=== PATIENT | female | born 1990 | race Caucasian/White ===

== ENCOUNTER 2021-03-17 17:10 | Inpatient (IN) | payer OTHER ==
[~2021-03-17] VITALS: Ht 162.6 cm; Wt 72.1 kg
[2021-03-17] MEDS ORDERED: IV NS 0.9% 1,000 ML BAG IV ONE (18:00)
[2021-03-17] MEDS ORDERED: KETOROLAC TROMETHAMINE INJ 30 MG/ML VIAL IV ONE (18:00)
[2021-03-17 18:12] LABS: BASOPHILS # (AUTO) 0.1 K/uL (0.0-0.2); BASOPHILS % (AUTO) 0.3 % (0.0-2.0); EOSINOPHILS % (AUTO) 0.1 % (0.0-6.0); HEMATOCRIT 40 % (33-45); HEMOGLOBIN 13.5 g/dL (11.5-14.8); LYMPHOCYTES # (AUTO) 1.3 K/uL (0.8-4.8); MEAN CORPUSCULAR HGB CONC 34 g/dl (31.0-36.0); MEAN CORPUSCULAR VOLUME 105 fL (82-100); MONOCYTES # (AUTO) 1.4 K/uL (0.1-1.30); MONOCYTES % (AUTO) 6.3 % (2.0-12.0); NEUTROPHILS # (AUTO) 19.4 K/uL (1.8-8.9); NEUTROPHILS % (AUTO) 87.3 % (43.0-81.0); PLATELET COUNT (AUTO) 264 K/uL (150-450); RED BLOOD CELL COUNT(AUTO) 3.79 MIL/uL (4.0-5.2); WHITE BLOOD COUNT (AUTO) 22.2 K/uL (4.3-11.0)
[2021-03-17 18:18] LABS: BILIRUBIN,URINE NEGATIVE (NEGATIVE); COLOR,URINE DARK YELLOW (YELLOW); LEUKOCYTE ESTERASE ,URINE TRACE (NEGATIVE); NITRITE, URINE NEGATIVE (NEGATIVE); PH,URINE 5.5 (5.0-8.0); PROTEIN,URINE TRACE mg/dl (NEGATIVE); UGLUCOSE NEGATIVE (NEGATIVE); UROBILINOGEN,URINE 0.2 EU/dL (0.2)
[2021-03-17 18:32] LABS: RBC,URINE 0-2 /HPF (0-2)
[2021-03-17 18:33] LABS: BACTERIA,URINE None seen /HPF (None Seen); CALCIUM OXALATE CRYSTALS,UR Few /HPF (None Seen); SQUAMOUS EPITHELIAL CELL,UR Few /HPF (None Seen)
[2021-03-17] MEDS ORDERED: KETOROLAC TROMETHAMINE 15 MG/ML VIAL ONE (18:36)
[2021-03-17 18:43] LABS: CALCIUM, SERUM 9.2 mg/dL (8.5-10.1); CREATININE 0.8 mg/dL (0.6-1.3); POTASSIUM 4.3 mmol/L (3.5-5.1)
--- NOTE | 2021-03-17 18:53 | NUR ---
Patient came in to the er c/o abd pain. On room air, connected to the monitor and pulse ox. kept comfortable, will continue to monitor accordingly.
[2021-03-17] MEDS ORDERED: MORPHINE SULFATE INJ 2 MG/ML DISP.SYRIN IV ONE (19:00)
[2021-03-17] MEDS ORDERED: ONDANSETRON HCL/PF - ER 4 MG/2 ML VIAL IV ONE (19:00)
[2021-03-17] MEDS ORDERED: MORPHINE SULFATE INJ 4 MG/ML DISP.SYRIN ONE (19:11)
[2021-03-17] MEDS ORDERED: ONDANSETRON HCL/PF 4 MG/2 ML VIAL ONE (19:11)
[2021-03-17] MEDS ORDERED: CT SWABBABLE VALVE TRANS SET 1 EA INFUS.SET MC ONE (19:14)
[2021-03-17] MEDS ORDERED: IV NS 0.9% 250 ML IV ONE (19:14)
[2021-03-17] MEDS ORDERED: IOHEXOL-300 100 ML VIAL IV ONE (19:14)
--- NOTE | 2021-03-17 19:36 | NUR ---
LEONELID SWABBED, SENT TO LAB.
[2021-03-17] MEDS ORDERED: DIAZEPAM 5 MG/ML 2 ML DISP.SYRIN ONE (19:37)
[2021-03-17] MEDS ORDERED: DIAZEPAM 5 MG/ML 2 ML DISP.SYRIN IV ONE (20:00)
[2021-03-17] MEDS ORDERED: HYDROMORPHONE 1 MG/1 ML DISP.SYRIN ONE ×2 (20:14→21:58)
[2021-03-17] MEDS ORDERED: HYDROMORPHONE 1 MG/1 ML DISP.SYRIN IV ONE (20:30)
--- NOTE | 2021-03-17 21:30 | NUR ---
PT RESTING COMFORTABLY. AWARE OF PLAN OF CARE. DENIES PAIN, VSS.
--- NOTE | 2021-03-17 21:44 | NUR ---
REPORT GIVEN TO NASIR NAILS FOR NAHUN
[2021-03-17] MEDS ORDERED: NITROFURANTOIN/NITROFURAN MONOHYDRATE 100 MG CAPSULE ONE (21:58)
[2021-03-17] MEDS ORDERED: HYDROMORPHONE 1 MG/1 ML DISP.SYRIN IV PRN (22:00)
--- NOTE | 2021-03-17 22:23 | NUR ---
PT TRANSFERED PER ACLS PROTOCOL.
--- NOTE | 2021-03-17 22:30 | NUR ---
RECEIVED PT FROM E.R. VIA ExterityEDMUNDO TO RM.320-2, ACCOMPANIED BY NURSE PRACTICAL. PT ADMITTED FOR CL CYST RUPTURE HEMOPERITONEUM. PT A/OX4, ABLE TO VERBALIZE NEEDS. STATES PAIN IS TOLERABLE AT THIS TIME. RESPIRATIONS EVEN AND UNLABORED. ON ROOM AIR AND HUANG WELL. IV SITE: L-AC #18G INTACT/PATENT/FLUSHES WELL. SKIN ASSESSMENT DONE/SKIN INTACT. ORIENTED TO ROOM AND STAFF, REINFORCED SAFETY TEACHINGS AND TO USE CALL LIGHT FOR ANY ASSISTANCE. PT VERBALIZED UNDERSTANDING. SAFETY MEASURES IN PLACE, BED IN LOWEST LOCKED POSITION, S/R UPX2, CALL LIGHT WITHIN REACH. WILL CONT TO MONITOR.
[2021-03-17 23:00] VITALS: BP 128/81
[2021-03-17 23:09] VITALS: BP 128/81
[2021-03-17] MEDS ORDERED: Z GUARD REMEDY 2 OZ OINT TP PRN (23:30)
[2021-03-17] MEDS ORDERED: ACETAMINOPHEN 325 MG TABLET PO PRN (23:30)
[2021-03-17] MEDS ORDERED: ONDANSETRON HCL/PF 4 MG/2 ML VIAL IVP PRN (23:30)
[2021-03-17] MEDS ORDERED: LORAZEPAM INJ 2 MG/ML VIAL IV PRN (23:30)
[2021-03-18] LABS: HEMATOCRIT 35 % (33-45); HEMOGLOBIN 11.9 g/dL (11.5-14.8); MEAN CORPUSCULAR HGB CONC 34 g/dl (31.0-36.0); MEAN CORPUSCULAR VOLUME 105 fL (82-100); PLATELET COUNT (AUTO) 202 K/uL (150-450); RED BLOOD CELL COUNT(AUTO) 3.35 MIL/uL (4.0-5.2); WHITE BLOOD COUNT (AUTO) 19.9 K/uL (4.3-11.0)
[2021-03-18] MEDS: IV NS 0.9% 1,000 ML IV PRN ×2 (01:05→15:10)
[2021-03-18] MEDS: HYDROMORPHONE INJ 2 MG/ML DISP.SYRIN IV PRN ×5 (01:07→20:14)
--- NOTE | 2021-03-18 01:07 | NUR ---
RN NOTE PT C/O PAIN TO LOWER ABD AREA 8/10 EXACERBATED BY MOVEMENT. GIVEN DILAUDID 1MG ORDERED. WILL CONT TO MONITOR.
--- NOTE | 2021-03-18 07:10 | NUR ---
RN CLOSING NOTE PT RESTING IN BED, DENIES PAIN AT THIS TIME. NO SOB. ON ROOM AIR AND HUANG WELL. IV SITE: L-AC #18G INTACT/PATENT/FLUSHES WELL. PT SLEPT WELL DURING THE NIGHT. NO ACUTE DISTRESS NOTED. SAFETY MEASURES MAINTAINED. ENDORSED TO NEXT SHIFT NURSE.
--- NOTE | 2021-03-18 07:40 | NUR ---
RN OPENING NOTES Patient seen comfortably lying in bed, no SOB, no apparent distress noted, breathing even and unlabored, denies any pain or discomfort at this time. Call light left within reach, safety precautions in place, brakes locked, side rails up X 2, will monitor closely for any changes.
[2021-03-18 08:00] VITALS: BP 119/76
[2021-03-18 08:40] LABS: BASOPHILS # (AUTO) 0.1 K/uL (0.0-0.2); BASOPHILS % (AUTO) 0.4 % (0.0-2.0); EOSINOPHILS % (AUTO) 0.8 % (0.0-6.0); HEMATOCRIT 31 % (33-45); HEMOGLOBIN 10.7 g/dL (11.5-14.8); LYMPHOCYTES # (AUTO) 2.1 K/uL (0.8-4.8); LYMPHOCYTES % (AUTO) 16.6 % (20.0-44.0); MEAN CORPUSCULAR HGB CONC 34 g/dl (31.0-36.0); MEAN CORPUSCULAR VOLUME 107 fL (82-100); MONOCYTES % (AUTO) 7.7 % (2.0-12.0); NEUTROPHILS # (AUTO) 9.4 K/uL (1.8-8.9); NEUTROPHILS % (AUTO) 74.5 % (43.0-81.0); PLATELET COUNT (AUTO) 163 K/uL (150-450); RED BLOOD CELL COUNT(AUTO) 2.94 MIL/uL (4.0-5.2); WHITE BLOOD COUNT (AUTO) 12.6 K/uL (4.3-11.0)
[2021-03-18] MEDS ORDERED: NITROFURANTOIN/NITROFURAN MONOHYDRATE 100 MG CAPSULE PO SCH (09:00)
[2021-03-18] MEDS: NITROFURANTOIN/NITROFURAN MONOHYDRATE 100 MG CAPSULE PO SCH ×2 (09:06→20:13)
[2021-03-18 09:16] LABS: BILIRUBIN,TOTAL 0.5 mg/dL (0.2-1.0); CALCIUM, SERUM 7.6 mg/dL (8.5-10.1); CREATININE 0.8 mg/dL (0.6-1.3); MAGNESIUM 1.7 mg/dL (1.8-2.4); PHOSPHORUS 4.1 mg/dL (2.5-4.9); POTASSIUM 3.6 mmol/L (3.5-5.1); TOTAL PROTEIN, SERUM 5.5 g/dL (6.4-8.2)
--- NOTE | 2021-03-18 11:30 | NUR ---
Patient seen and examined by hospitalist, plan of care discussed with patient, patient requested to have her blood draw for today stopped, per patient she feels like she already have enough for the day and she feels uncomfortable giving more, per hospitalist, okay to cancel the remaining hemogram orders.
--- NOTE | 2021-03-18 15:11 | NUR ---
SS Consult: SS consult requested for substance abuse. Pt. is a 30-year-old woman who was admitted to [facility] for complaints of abdominal pain to her right shoulder. Per the EMR, pt. was describing the pain as a 10/10. Per the EMR, pt. has no recent trauma and normal menstrual cycles. Upon SS consult, the pt. is alert and oriented x4. Pt. presents with a depressed mood and flat affect. Pt. is guarded and provides appropriate eye contact & appears well-groomed. Pt.s mother, Tatyana Girard ([phone]) was bedside and pt. agreed to proceed with the interview. SW explored pt.s living situation. Pt. stated she lives at home [[address] [place] [address]; [phone]] with her ex-boyfriend but did not disclose his name. Pt. stated they are ambulatory. SW explored pt.s drug and alcohol abuse. Pt. denied drug and alcohol abuse. SW offered addiction resources as pt. disclosed to other medical staff that they do drugs. Pt. refused resources. SW explored pt.s mental health H. Pt. denies any mental illness. Pt. denied SI/HI and visual and auditory hallucinations. Upon discharge, pt. states they want to return to home [[address] [place] [id number]]. Resources offered include: ADDICTION RESOURCES For Drugs and Alcohol [facility] Substance Abuse Helpline([facility] Outpatient treatment, residential treatment, recovery support for youth and adults [facility] www.actionfamilycounseling.GigsJam [facility] Teen programs for drug/alcohol education and support [facility]. Program for adults, sliding scale provides support and education [facility] www.Harrow Sportsation.org [place]; Outpatient/residential treatment programs; transition to sober living [facility] www.cri-help.org [place]; Outpatient and residential treatment programs; transition to sober living [facility] [place]; Outpatient education and supportive programs for teens and adults [facility] www.oasiswomensrecovery.org [place]; Residential treatment and work program for females only [facility] www.phoMarket76[facility].org [place]: Outpatient/residential treatment program for teens and young adults [facility] www.[facility].org [place] Detox, inpatient, outpatient for adults and youth [facility], [facility]. [place]; Outpatient programs and referrals to community residential programs. Alcoholics Anonymous -SFV information and meeting and schedules www.aa-intergroup.org Jb-Spem-Fycbrrz https://al-anon.org/ [place] support groups for family of alcoholics. Marijuana Anonymous www.DuXplore.org -sfv listing of meetings Narcotics Anonymous www.na.org SOBER LIVING RESOURCES [facility] www.soberhousing.net A non-profit agency that provides resources to recovery and sober living homes throughout [place], [place], [facility] Sober Living Homes: A [facility], [facility] Womens Sober Living Homes: [facility] x [phone] [place], [place] [facility] Coed Sober Living Homes: [facility]--Outpatient [facility] [address] [place] [address] (Specializes in in-depth psychotherapy for emotional distress: anxiety, depression, interpersonal conflicts, life transitions, childhood abuse) [facility] [address] [place] [address] (Assist with solving problem marital difficulties, separation & divorce, aging parents, & grief, chronic & terminal illness) [facility] [address] [place] [address] (Deal with loss & grief, anxiety, marital difficulties) [facility]ental Health Services [address] [place], [place] [id number] (Provide in-home mental services to people who are incapable of leaving their homes) [facility]eds of the Elderly [facility] [address] [place] [address] [facility] [address] [place] [address] Mental Health Services [facility] [address] [place] [address] Services: Outpatient therapy for children, teens, young adults, adults, older adults, and families; Psychiatric services, medication support Psychiatric Outpatient Services [facility] Partial Hospitalization and Intensive Outpatient Program (Managed Care and [place] Only)[address] [facility] [phone] [facility] Partial Hospitalization and Outpatient [place] [place], [place] [phone] [facility] Partial Hospitalization and Outpatient [address] [place], [place] [phone] [facility] [id number] [facility]. [address] [place], [place] [phone] [facility] Partial Hospitalization and Outpatient Rfzfdps[address]69 Veda Gao [phone] Crisis and Hotline Telephone Numbers 24-Hour service unless stated [place] Crisis Hotlines: [place] Mental Health/Crisis Line........585.600.9826 Suicide Prevention Center (24 Hours).......683.427.3517 Suicide Prevention Crisis Center.......141.575.9085 (24 Hours) Assaults Against Women Hotline.........386.606.6004 (24 Hours -- [facility]) Women and Children Crisis Fdc...........684.136.2216 (24 Hours) Child Abuse Hotline............552.542.4788 [facility] (24 Hours)..........172.239.3928 Alcoholics Anonymous (24 Hours)..........788.818.2214 Cocaine Anonymous (24 Hours)............179.198.6562 Narcotics Anonymous (24 Hours)..........452.355.1544 [address] [facility] [address], [place] [address]
[2021-03-18 16:00] VITALS: BP 107/64
--- NOTE | 2021-03-18 19:00 | NUR ---
RN CLOSING NOTES Patient lying in bed, AO X 4, able to make needs known, can follow simple commands. No apparent distress noted, no dizziness, no palpitations, respirations even and unlabored, no SOB, remained afebrile. All due medications given per MD order, tolerating well. Pain medication given as needed per MD order when non pharmacological measures ineffective. Call light left within reach, all needs attended, kept clean and dry, safety precautions in place, brakes locked, side rails up X 2, will endorse to next shift for continuity of care.
--- NOTE | 2021-03-18 19:50 | NUR ---
Patient is A&Ox4. States that the pain to her abdomen is back. Patient educated that pain medicine will be administered when due for safety reasons. NS at 75cc/hr infusing to RAC #18G. LAC#18G flushed and patent as well. Safety measures in place. Will continue to monitor.
[2021-03-18 20:00] VITALS: BP 106/68
--- NOTE | 2021-03-18 20:15 | NUR ---
Patient medicated with PRN dilaudid for severe abdominal pain.
--- NOTE | 2021-03-18 21:25 | NUR ---
Change of care report given to JESU Rose.
[2021-03-19] MEDS: HYDROMORPHONE INJ 2 MG/ML DISP.SYRIN IV PRN ×3 (01:12→11:15)
--- NOTE | 2021-03-19 01:12 | NUR ---
RN NOTE PATIENT AWAKE, ALERT. PATIENT REQUESTING FOR PAIN MEDICATION. PATIENT STATES THE PAIN IS STEMMING FROM HER ABDOMEN AND IS SLIGHTLY RADIATING TO THE RIGHT ABDOMEN. RATES PAIN 1010. PATIENT DENIES CONSTIPATION AND STATES HER LAST BM WAS 03/17. ABDOMEN SOFT AND NON-TENDER. NO REDNESS NOTED. ASSISTED WITH TURNING AND REPOSITIONING WITH NO RELIEF. ADMINISTERED DILAUDID 1 MG VIA IV PUSH. WILL CONTINUE TO MONITOR. CALL LIGHT WITHIN REACH. Addendum: 03/19/21 at 0553 by CARMENCITA ELI RN PAIN RATE 03/01
[2021-03-19] MEDS: IV NS 0.9% 1,000 ML IV PRN (05:15)
--- NOTE | 2021-03-19 05:53 | NUR ---
RN NOTE PATIENT REQUESTING FOR PAIN MEDICATION. STATES HER PAIN IS ON HER LOWER ABDOMEN, RADIATING TO THE RIGHT LATERAL ABDOMEN. ABDOMEN IS WARM, SOFT, AND NON-TENDER. DENIES CONSTIPATION. NO REDNESS NOTED. STATES HER PAIN IS 10/10. NOTED WITH ABDOMINAL GUARDING AND MOANING. ASSISTED WITH REPOSITION WITH NO RELIEF. ADMINISTERED DILAUDID 1MG VIA IV PUSH. DENIES PAIN AT IV SITE. WILL CONTINUE TO MONITOR.
--- NOTE | 2021-03-19 07:30 | NUR ---
MS RN OPENING NOTES RECEIVED PATIENT ON BED, RESTING AND A/O X4. ON ROOM AIR TOLERATING WELL. NO SOB NOTED. NOT IN DISTRESS. WITH NO COMPLAINTS OF PAIN OR DISCOMFORT AT THIS TIME. WITH IV ACCESS AT RIGHT AC G18, AND LEFT AC G18 WITH NS AT 75ML/HR. BOTH IV LINES ARE PATENT AND INTACT. SAFETY MEASURES IN PLACE. CALL LIGHT WITHIN REACH. BED ON LOWEST AND LOCKED POSITION, SIDE RAILS UP X2. WILL CONTINUE TO MONITOR.
[2021-03-19 08:00] VITALS: BP 110/58
[2021-03-19] MEDS: NITROFURANTOIN/NITROFURAN MONOHYDRATE 100 MG CAPSULE PO SCH (08:39)
[2021-03-19] MEDS ORDERED: PSYLLIUM SEED 1 PKT PACKET PO ONE (10:00)
[2021-03-19] MEDS ORDERED: MAG HYDROX/AL HYDROX/SIMETH 30 ML UDC PO PRN (10:00)
[2021-03-19] MEDS ORDERED: DOCUSATE SODIUM 100 MG CAPSULE PO SCH (10:00)
[2021-03-19] MEDS ORDERED: PSYLLIUM SEED 1 PKT PACKET ONE (10:12)
[2021-03-19] MEDS ORDERED: DOCUSATE SODIUM 100 MG CAPSULE PO ONE (10:13)
[2021-03-19 16:00] VITALS: BP 115/72
[2021-03-19] MEDS ORDERED: MORPHINE SULFATE INJ 4 MG/ML DISP.SYRIN IV PRN (18:00)
[2021-03-19] MEDS ORDERED: LORAZEPAM 1 MG TABLET PO PRN (18:00)
[2021-03-19] MEDS ORDERED: HYDROCODONE/APAP 5/325MG TABLET PO PRN (18:00)
--- NOTE | 2021-03-19 18:30 | NUR ---
MS RN CLOSING NOTES PATIENT ON BED, RESTING AND A/O X4. ON ROOM AIR TOLERATING WELL. NO SOB NOTED. NOT IN DISTRESS. WITH COMPLAINTS OF PAIN AT 7/10. NORCO 5-325MG TABLET GIVEN PRN FOR PAIN. COMFORT MEASURES PROVIDED. WITH IV ACCESS AT RIGHT AC G18, AND LEFT AC G18 WITH NS AT 75ML/HR. BOTH IV LINES ARE PATENT AND INTACT. SAFETY MEASURES IN PLACE. CALL LIGHT WITHIN REACH. BED ON LOWEST AND LOCKED POSITION, SIDE RAILS UP X2. WILL ENDORSE TO NEXT SHIFT FOR NAHUN.
--- NOTE | 2021-03-19 19:00 | NUR ---
MS RN OPENING NOTE RECEIVED PT IN BED, RESTING. A/O X4. PT IS ON ROOM AIR, NO SOB OR RESPIRATORY DISTRESS NOTED, NO C/O PAIN. RESPIRATIONS EVEN AND UNLABORED, IV ACCESS NOTED IN LEFT AC G#18, RIGHT AC 18, INTACT, PATENT AND FLUSHING WELL. FALL AND SAFETY MEASURES IN PLACE AND MAINTAINED AT ALL TIMES. BED ALARM ON, BED IN LOW AND LOCKED POSITION, HOB ELEVATED TO SEMI FOWLERS POSITION, CALL LIGHT AND TABLE WITHIN REACH, SIDE RAILS UP X2. WILL CONTINUE TO MONITOR.
--- NOTE | 2021-03-19 21:00 | NUR ---
DISCHARGE PT STABLE UPON DISCHARGE.
== END 2021-03-19 21:15 | disposition home or self-care (01) | DRG 720 ==
LOC: ER 17:16 → TELE 21:36 → MED 22:53
PROVIDERS: ADMIT Nurse Practitioner Acute Care; ATTEND Nurse Practitioner Acute Care
DX: A41.9 Sepsis, unspecified organism (principal); K66.1 Hemoperitoneum; K66.8 Other specified disorders of peritoneum; D62 Acute posthemorrhagic anemia; N83.12 Corpus luteum cyst of left ovary; N39.0 Urinary tract infection, site not specified; D75.89 Other specified diseases of blood and blood-forming organs; Z20.822 Contact with and (suspected) exposure to COVID-19; F10.10 Alcohol abuse, uncomplicated; Y90.9 Presence of alcohol in blood, level not specified; Z88.0 Allergy status to penicillin; B96.89 Other specified bacterial agents as the cause of diseases classified elsewhere; K59.00 Constipation, unspecified; F17.200 Nicotine dependence, unspecified, uncomplicated
CPT/HCPCS: 36415; 76856-TC; 80048-TC; 80053-TC; 80061-TC; 81001; 83540-TC; 83690-TC; 83735-TC; 84100-TC; 84703-TC; 85025-TC; 85027-TC; 85730-TC; 86850-TC; 87081-TC; 87086-TC; 87186-TC; C9803; G0378; J1170; J1885; J2270; J2405; J3360; J7030; J7050; Q9967